=== PATIENT | male | born 1955 | race Caucasian/White ===

== ENCOUNTER → 2018-09-09 | Outpatient (CLI) | payer MEDICAID | END | disposition home or self-care (01) | LOC: WOUND 11:48 | PROVIDERS: ATTEND Family Medicine | DX: L97.312 Non-pressure chronic ulcer of right ankle with fat layer exposed (principal); I10 Essential (primary) hypertension; K21.9 Gastro-esophageal reflux disease without esophagitis | CPT/HCPCS: 97597; 99205 ==

== ENCOUNTER 2018-09-16 09:41 | Emergency (ER) | payer MEDICAID ==
[~2018-09-16] VITALS: Ht 182.9 cm; Wt 102.4 kg
[2018-09-16] MEDS ORDERED: SODIUM CHLORIDE FLUSH 10ML SYR IVF ONE (10:30)
[2018-09-16 10:33] LABS: BASOPHILS # (AUTO) 0.05 x10^3/uL (0-0.1); BASOPHILS % (AUTO) 1 % (0-1); EOSINOPHILS % (AUTO) 1 % (1-7); LYMPHOCYTES # (AUTO) 1.76 x10^3/uL (1-3.4); LYMPHOCYTES % (AUTO) 23 % (22-44); MD NO; MEAN CORPUSCULAR HEMOGLOBIN 33.3 pg (27.5-34.5); MEAN CORPUSCULAR HGB CONC 34.5 g/dL (33.2-36.2); MEAN CORPUSCULAR VOLUME 96.4 fL (81-97); MEAN PLATELET VOLUME 8.1 fL (7.4-10.4); MONOCYTES # (AUTO) 0.45 x10^3/uL (0.2-0.8); MONOCYTES % (AUTO) 6 % (2-9); NEUTROPHILS # (AUTO) 5.15 x10^3/uL (1.8-6.8); NEUTROPHILS % (AUTO) 69 % (42-75); PLATELET COUNT 146 x10^3/uL (130-400); RED BLOOD COUNT 4.69 x10^6/uL (4.38-5.82); RED CELL DISTRIBUTION WIDTH 13.7 % (9.4-14.8)
[2018-09-16 10:46] LABS: ALBUMIN 4.1 g/dL (3.4-5.0); ANION GAP 8 mmol/L (5-15); CALCIUM 8.9 mg/dL (8.5-10.1); CHLORIDE 105 mmol/L (98-107); CREATININE 0.89 mg/dL (0.7-1.3)
[2018-09-16 11:52] VITALS: BP 144/90
== END 2018-09-16 11:55 | disposition home or self-care (01) ==
LOC: ED 11:33
DX: I10 Essential (primary) hypertension (principal)
CPT/HCPCS: 36415; 80048; 82040; 85025; 93005; 99285

== ENCOUNTER → 2018-09-16 | Outpatient (CLI) | payer MEDICAID | END | disposition home or self-care (01) | LOC: WOUND 08:48 | PROVIDERS: ATTEND Family Medicine | DX: L97.312 Non-pressure chronic ulcer of right ankle with fat layer exposed (principal); L84 Corns and callosities; I10 Essential (primary) hypertension; K21.9 Gastro-esophageal reflux disease without esophagitis | CPT/HCPCS: 97597 ==

== ENCOUNTER → 2018-09-23 | Outpatient (CLI) | payer MEDICAID | END | disposition home or self-care (01) | LOC: WOUND 09:20 | PROVIDERS: ATTEND Family Medicine | DX: L97.312 Non-pressure chronic ulcer of right ankle with fat layer exposed (principal); L84 Corns and callosities; I10 Essential (primary) hypertension; K21.9 Gastro-esophageal reflux disease without esophagitis | CPT/HCPCS: 97597 ==

== ENCOUNTER → 2018-09-30 | Outpatient (CLI) | payer MEDICAID | END | disposition home or self-care (01) | LOC: WOUND 09:43 | PROVIDERS: ATTEND Family Medicine | DX: L97.312 Non-pressure chronic ulcer of right ankle with fat layer exposed (principal); I87.8 Other specified disorders of veins; I10 Essential (primary) hypertension; K21.9 Gastro-esophageal reflux disease without esophagitis; Z86.718 Personal history of other venous thrombosis and embolism | CPT/HCPCS: 97597 ==

== ENCOUNTER → 2018-10-11 | Outpatient (CLI) | payer MEDICAID | END | disposition home or self-care (01) | LOC: CVU 06:48 | PROVIDERS: ATTEND Family Medicine | DX: I87.312 Chronic venous hypertension (idiopathic) with ulcer of left lower extremity (principal); L97.312 Non-pressure chronic ulcer of right ankle with fat layer exposed; I82.413 Acute embolism and thrombosis of femoral vein, bilateral; L81.8 Other specified disorders of pigmentation; R60.9 Edema, unspecified | CPT/HCPCS: 93922; 93925; 93970 ==

== ENCOUNTER → 2018-10-14 | Outpatient (CLI) | payer MEDICAID | END | disposition home or self-care (01) | LOC: WOUND 09:30 | PROVIDERS: ATTEND Family Medicine | DX: L97.312 Non-pressure chronic ulcer of right ankle with fat layer exposed (principal); I87.2 Venous insufficiency (chronic) (peripheral); I10 Essential (primary) hypertension; K21.9 Gastro-esophageal reflux disease without esophagitis; Z86.718 Personal history of other venous thrombosis and embolism | CPT/HCPCS: 97597 ==

== ENCOUNTER → 2018-10-21 | Outpatient (CLI) | payer MEDICAID | END | disposition home or self-care (01) | LOC: WOUND 10:08 | PROVIDERS: ATTEND Family Medicine | DX: L97.312 Non-pressure chronic ulcer of right ankle with fat layer exposed (principal); I82.511 Chronic embolism and thrombosis of right femoral vein; I87.2 Venous insufficiency (chronic) (peripheral); L84 Corns and callosities; I10 Essential (primary) hypertension; K21.9 Gastro-esophageal reflux disease without esophagitis | CPT/HCPCS: 97597 ==

== ENCOUNTER → 2018-10-28 | Outpatient (CLI) | payer MEDICAID | END | disposition home or self-care (01) | LOC: WOUND 09:26 | PROVIDERS: ATTEND Family Medicine | DX: L97.312 Non-pressure chronic ulcer of right ankle with fat layer exposed (principal); S91.301D Unspecified open wound, right foot, subsequent encounter; I87.2 Venous insufficiency (chronic) (peripheral); L84 Corns and callosities; I10 Essential (primary) hypertension; K21.9 Gastro-esophageal reflux disease without esophagitis; Z86.718 Personal history of other venous thrombosis and embolism; X58.XXXD Exposure to other specified factors, subsequent encounter | CPT/HCPCS: 97597 ==

== ENCOUNTER → 2018-11-04 | Outpatient (CLI) | payer MEDICAID | END | disposition home or self-care (01) | LOC: WOUND 10:51 | PROVIDERS: ATTEND Family Medicine | DX: L97.312 Non-pressure chronic ulcer of right ankle with fat layer exposed (principal); S91.301D Unspecified open wound, right foot, subsequent encounter; I87.2 Venous insufficiency (chronic) (peripheral); L84 Corns and callosities; I10 Essential (primary) hypertension; K21.9 Gastro-esophageal reflux disease without esophagitis; Z86.718 Personal history of other venous thrombosis and embolism; X58.XXXD Exposure to other specified factors, subsequent encounter | CPT/HCPCS: 97597 ==

== ENCOUNTER → 2018-11-18 | Outpatient (CLI) | payer MEDICAID | END | disposition home or self-care (01) | LOC: WOUND 09:41 | PROVIDERS: ATTEND Family Medicine | DX: L97.312 Non-pressure chronic ulcer of right ankle with fat layer exposed (principal); S91.301D Unspecified open wound, right foot, subsequent encounter; I87.2 Venous insufficiency (chronic) (peripheral); L84 Corns and callosities; I10 Essential (primary) hypertension; K21.9 Gastro-esophageal reflux disease without esophagitis; Z86.718 Personal history of other venous thrombosis and embolism; X58.XXXD Exposure to other specified factors, subsequent encounter | CPT/HCPCS: 97597 ==

== ENCOUNTER → 2018-11-25 | Outpatient (CLI) | payer MEDICAID | END | disposition home or self-care (01) | LOC: WOUND 10:32 | PROVIDERS: ATTEND Family Medicine | DX: L97.312 Non-pressure chronic ulcer of right ankle with fat layer exposed (principal); I87.2 Venous insufficiency (chronic) (peripheral); L84 Corns and callosities; I10 Essential (primary) hypertension; K21.9 Gastro-esophageal reflux disease without esophagitis; Z86.718 Personal history of other venous thrombosis and embolism | CPT/HCPCS: 97597 ==

== ENCOUNTER → 2018-12-16 | Outpatient (CLI) | payer MEDICAID | END | disposition home or self-care (01) | LOC: WOUND 10:50 | PROVIDERS: ATTEND Family Medicine | DX: L97.312 Non-pressure chronic ulcer of right ankle with fat layer exposed (principal); L84 Corns and callosities; I10 Essential (primary) hypertension; I87.2 Venous insufficiency (chronic) (peripheral); K21.9 Gastro-esophageal reflux disease without esophagitis; Z86.718 Personal history of other venous thrombosis and embolism | CPT/HCPCS: 97597 ==

== ENCOUNTER → 2018-12-23 | Outpatient (CLI) | payer MEDICAID | END | disposition home or self-care (01) | LOC: WOUND 10:31 | PROVIDERS: ATTEND Family Medicine | DX: L97.312 Non-pressure chronic ulcer of right ankle with fat layer exposed (principal); L84 Corns and callosities; I10 Essential (primary) hypertension; I87.2 Venous insufficiency (chronic) (peripheral); K21.9 Gastro-esophageal reflux disease without esophagitis; Z86.718 Personal history of other venous thrombosis and embolism | CPT/HCPCS: 99214 ==

== ENCOUNTER 2019-01-06 10:34 | Outpatient (CLI) | payer MEDICAID | END 2019-01-06 23:59 | disposition home or self-care (01) | LOC: WOUND 10:34 | PROVIDERS: ATTEND Family Medicine | DX: L97.312 Non-pressure chronic ulcer of right ankle with fat layer exposed (principal); L84 Corns and callosities; I10 Essential (primary) hypertension; I87.2 Venous insufficiency (chronic) (peripheral); K21.9 Gastro-esophageal reflux disease without esophagitis; Z86.718 Personal history of other venous thrombosis and embolism | CPT/HCPCS: 97597 ==

== ENCOUNTER → 2019-01-20 | Outpatient (CLI) | payer MEDICAID | END | disposition home or self-care (01) | LOC: WOUND 10:31 | PROVIDERS: ATTEND Family Medicine | DX: L97.312 Non-pressure chronic ulcer of right ankle with fat layer exposed (principal); L84 Corns and callosities; I10 Essential (primary) hypertension; K21.9 Gastro-esophageal reflux disease without esophagitis; I87.2 Venous insufficiency (chronic) (peripheral); I82.511 Chronic embolism and thrombosis of right femoral vein; I82.512 Chronic embolism and thrombosis of left femoral vein; Z86.718 Personal history of other venous thrombosis and embolism | CPT/HCPCS: 99214 ==

== ENCOUNTER → 2019-02-03 | Outpatient (CLI) | payer MEDICAID | END | disposition home or self-care (01) | LOC: WOUND 10:30 | PROVIDERS: ATTEND Family Medicine | DX: L97.312 Non-pressure chronic ulcer of right ankle with fat layer exposed (principal); L84 Corns and callosities; I10 Essential (primary) hypertension; I87.2 Venous insufficiency (chronic) (peripheral); K21.9 Gastro-esophageal reflux disease without esophagitis; Z86.718 Personal history of other venous thrombosis and embolism | CPT/HCPCS: 97597 ==

== ENCOUNTER → 2019-02-24 | Outpatient (CLI) | payer MEDICAID | END | disposition home or self-care (01) | LOC: WOUND 10:39 | PROVIDERS: ATTEND Family Medicine | DX: L97.312 Non-pressure chronic ulcer of right ankle with fat layer exposed (principal); L84 Corns and callosities; I10 Essential (primary) hypertension; I87.2 Venous insufficiency (chronic) (peripheral); K21.9 Gastro-esophageal reflux disease without esophagitis; Z86.718 Personal history of other venous thrombosis and embolism | CPT/HCPCS: 97597 ==

== ENCOUNTER 2019-03-10 10:59 | Outpatient (CLI) | payer MEDICAID | END 2019-03-10 23:59 | disposition home or self-care (01) | LOC: WOUND 10:59 | PROVIDERS: ATTEND Family Medicine | DX: L97.312 Non-pressure chronic ulcer of right ankle with fat layer exposed (principal); L97.511 Non-pressure chronic ulcer of other part of right foot limited to breakdown of skin; I87.2 Venous insufficiency (chronic) (peripheral); I82.511 Chronic embolism and thrombosis of right femoral vein; I82.512 Chronic embolism and thrombosis of left femoral vein; L84 Corns and callosities; I10 Essential (primary) hypertension; K21.9 Gastro-esophageal reflux disease without esophagitis | CPT/HCPCS: 97597 ==

== ENCOUNTER → 2019-04-14 | Outpatient (CLI) | payer MEDICAID | END | disposition home or self-care (01) | LOC: WOUND 10:47 | PROVIDERS: ATTEND Family Medicine | DX: L97.312 Non-pressure chronic ulcer of right ankle with fat layer exposed (principal); I87.2 Venous insufficiency (chronic) (peripheral); I82.511 Chronic embolism and thrombosis of right femoral vein; I82.512 Chronic embolism and thrombosis of left femoral vein; L84 Corns and callosities; I10 Essential (primary) hypertension; K21.9 Gastro-esophageal reflux disease without esophagitis | CPT/HCPCS: 99213 ==

== ENCOUNTER → 2019-04-28 | Outpatient (CLI) | payer MEDICAID | END | disposition home or self-care (01) | LOC: WOUND 08:37 | PROVIDERS: ATTEND Internal Medicine Cardiovascular Disease | DX: L97.312 Non-pressure chronic ulcer of right ankle with fat layer exposed (principal); I87.2 Venous insufficiency (chronic) (peripheral); I82.511 Chronic embolism and thrombosis of right femoral vein; I82.512 Chronic embolism and thrombosis of left femoral vein; L84 Corns and callosities; I10 Essential (primary) hypertension; K21.9 Gastro-esophageal reflux disease without esophagitis | CPT/HCPCS: 99213 ==

== ENCOUNTER → 2019-05-12 | Outpatient (CLI) | payer MEDICAID | END | disposition home or self-care (01) | LOC: WOUND 08:47 | PROVIDERS: ATTEND Family Medicine | DX: L97.312 Non-pressure chronic ulcer of right ankle with fat layer exposed (principal); L97.511 Non-pressure chronic ulcer of other part of right foot limited to breakdown of skin; I87.2 Venous insufficiency (chronic) (peripheral); I82.511 Chronic embolism and thrombosis of right femoral vein; I82.512 Chronic embolism and thrombosis of left femoral vein; L84 Corns and callosities; I10 Essential (primary) hypertension; K21.9 Gastro-esophageal reflux disease without esophagitis | CPT/HCPCS: 99213 ==

== ENCOUNTER → 2019-05-26 | Outpatient (CLI) | payer MEDICAID | END | disposition home or self-care (01) | LOC: WOUND 09:03 | PROVIDERS: ATTEND Family Medicine | DX: L97.312 Non-pressure chronic ulcer of right ankle with fat layer exposed (principal); L97.511 Non-pressure chronic ulcer of other part of right foot limited to breakdown of skin; I87.2 Venous insufficiency (chronic) (peripheral); I82.511 Chronic embolism and thrombosis of right femoral vein; I82.512 Chronic embolism and thrombosis of left femoral vein; L84 Corns and callosities; I10 Essential (primary) hypertension; K21.9 Gastro-esophageal reflux disease without esophagitis | CPT/HCPCS: 97597 ==

== ENCOUNTER 2019-06-09 09:01 | Outpatient (CLI) | payer MEDICAID | END 2019-06-09 23:59 | disposition home or self-care (01) | LOC: WOUND 09:01 | PROVIDERS: ATTEND Family Medicine | DX: L97.312 Non-pressure chronic ulcer of right ankle with fat layer exposed (principal); L97.511 Non-pressure chronic ulcer of other part of right foot limited to breakdown of skin; I87.2 Venous insufficiency (chronic) (peripheral); I82.511 Chronic embolism and thrombosis of right femoral vein; I82.512 Chronic embolism and thrombosis of left femoral vein; L84 Corns and callosities; I10 Essential (primary) hypertension; K21.9 Gastro-esophageal reflux disease without esophagitis | CPT/HCPCS: 99213 ==

== ENCOUNTER 2019-06-30 09:00 | Outpatient (CLI) | payer MEDICAID | END 2019-06-30 23:59 | disposition home or self-care (01) | LOC: WOUND 09:00 | PROVIDERS: ATTEND Family Medicine | DX: L97.312 Non-pressure chronic ulcer of right ankle with fat layer exposed (principal); L97.511 Non-pressure chronic ulcer of other part of right foot limited to breakdown of skin; I87.2 Venous insufficiency (chronic) (peripheral); I82.511 Chronic embolism and thrombosis of right femoral vein; I82.512 Chronic embolism and thrombosis of left femoral vein; L84 Corns and callosities; I10 Essential (primary) hypertension; K21.9 Gastro-esophageal reflux disease without esophagitis | CPT/HCPCS: 97597; 97598 ==

== ENCOUNTER → 2019-09-08 | Outpatient (CLI) | payer MEDICAID | END | disposition home or self-care (01) | LOC: WOUND 09:40 | PROVIDERS: ATTEND Family Medicine | DX: L97.312 Non-pressure chronic ulcer of right ankle with fat layer exposed (principal); S91.301D Unspecified open wound, right foot, subsequent encounter; I87.2 Venous insufficiency (chronic) (peripheral); I82.513 Chronic embolism and thrombosis of femoral vein, bilateral; L84 Corns and callosities; I10 Essential (primary) hypertension; K21.9 Gastro-esophageal reflux disease without esophagitis; X58.XXXD Exposure to other specified factors, subsequent encounter | CPT/HCPCS: 97597 ==

== ENCOUNTER → 2019-10-06 | Outpatient (CLI) | payer MEDICAID | END | disposition home or self-care (01) | LOC: WOUND 09:32 | PROVIDERS: ATTEND Family Medicine | DX: L97.312 Non-pressure chronic ulcer of right ankle with fat layer exposed (principal); S91.301D Unspecified open wound, right foot, subsequent encounter; I87.2 Venous insufficiency (chronic) (peripheral); I82.513 Chronic embolism and thrombosis of femoral vein, bilateral; L84 Corns and callosities; I10 Essential (primary) hypertension; K21.9 Gastro-esophageal reflux disease without esophagitis; X58.XXXD Exposure to other specified factors, subsequent encounter | CPT/HCPCS: 97597 ==

== ENCOUNTER → 2019-10-20 | Outpatient (CLI) | payer MEDICAID | END | disposition home or self-care (01) | LOC: WOUND 09:22 | PROVIDERS: ATTEND Family Medicine | DX: L97.312 Non-pressure chronic ulcer of right ankle with fat layer exposed (principal); S91.301D Unspecified open wound, right foot, subsequent encounter; I87.2 Venous insufficiency (chronic) (peripheral); I82.513 Chronic embolism and thrombosis of femoral vein, bilateral; L84 Corns and callosities; I10 Essential (primary) hypertension; K21.9 Gastro-esophageal reflux disease without esophagitis; X58.XXXD Exposure to other specified factors, subsequent encounter | CPT/HCPCS: 97597 ==

== ENCOUNTER 2019-11-29 09:43 | Outpatient (CLI) | payer MEDICAID | END 2019-11-29 23:59 | disposition home or self-care (01) | LOC: WOUND 09:43 | PROVIDERS: ATTEND Internal Medicine | DX: L97.312 Non-pressure chronic ulcer of right ankle with fat layer exposed (principal); S91.301D Unspecified open wound, right foot, subsequent encounter; I87.2 Venous insufficiency (chronic) (peripheral); I82.513 Chronic embolism and thrombosis of femoral vein, bilateral; L84 Corns and callosities; I10 Essential (primary) hypertension; K21.9 Gastro-esophageal reflux disease without esophagitis; X58.XXXD Exposure to other specified factors, subsequent encounter | CPT/HCPCS: 97597 ==

== ENCOUNTER 2019-12-13 09:47 | Outpatient (CLI) | payer MEDICAID | END 2019-12-13 23:59 | disposition home or self-care (01) | LOC: WOUND 09:47 | PROVIDERS: ATTEND Internal Medicine | DX: L97.312 Non-pressure chronic ulcer of right ankle with fat layer exposed (principal); L84 Corns and callosities; I10 Essential (primary) hypertension; I82.513 Chronic embolism and thrombosis of femoral vein, bilateral; I87.2 Venous insufficiency (chronic) (peripheral); K21.9 Gastro-esophageal reflux disease without esophagitis | CPT/HCPCS: 97597 ==

== ENCOUNTER 2019-12-27 10:00 | Outpatient (CLI) | payer MEDICAID | END 2019-12-27 23:59 | disposition home or self-care (01) | LOC: WOUND 10:00 | PROVIDERS: ATTEND Internal Medicine | DX: L97.312 Non-pressure chronic ulcer of right ankle with fat layer exposed (principal); L84 Corns and callosities; I10 Essential (primary) hypertension; I87.2 Venous insufficiency (chronic) (peripheral); I82.513 Chronic embolism and thrombosis of femoral vein, bilateral; K21.9 Gastro-esophageal reflux disease without esophagitis | CPT/HCPCS: 97597 ==

== ENCOUNTER → 2020-01-10 | Outpatient (CLI) | payer MEDICAID | END | disposition home or self-care (01) | LOC: WOUND 09:47 | PROVIDERS: ATTEND Internal Medicine | DX: L97.312 Non-pressure chronic ulcer of right ankle with fat layer exposed (principal); L84 Corns and callosities; I10 Essential (primary) hypertension; I87.2 Venous insufficiency (chronic) (peripheral); I82.511 Chronic embolism and thrombosis of right femoral vein; I82.512 Chronic embolism and thrombosis of left femoral vein; I82.513 Chronic embolism and thrombosis of femoral vein, bilateral; K21.9 Gastro-esophageal reflux disease without esophagitis | CPT/HCPCS: 97597 ==

== ENCOUNTER → 2020-02-07 | Outpatient (CLI) | payer MEDICAID | END | disposition home or self-care (01) | LOC: WOUND 09:18 | PROVIDERS: ATTEND Internal Medicine | DX: L97.312 Non-pressure chronic ulcer of right ankle with fat layer exposed (principal); L84 Corns and callosities; I10 Essential (primary) hypertension; I87.2 Venous insufficiency (chronic) (peripheral); I82.511 Chronic embolism and thrombosis of right femoral vein; I82.512 Chronic embolism and thrombosis of left femoral vein; I82.513 Chronic embolism and thrombosis of femoral vein, bilateral; K21.9 Gastro-esophageal reflux disease without esophagitis | CPT/HCPCS: 99213 ==